=== PATIENT | male | born 1960 | race Caucasian/White ===

== ENCOUNTER 2019-06-11 08:33 | Inpatient (IN) | payer MEDICARE, MEDICAID ==
[~2019-06-11] VITALS: Ht 175.2 cm; Wt 81.2 kg
[2019-06-11 13:39] VITALS: BP 190/88
--- NOTE | 2019-06-11 13:40 | NUR ---
DR. INTERIANO NOTIFIED OF NEW ADMISSION. CONSULT FOR MEDICAL MANAGEMENT TO BE PUT UNDER DR. LEMUS.
--- NOTE | 2019-06-11 13:40 | NUR ---
DR. INTERIANO NOTIFIED OF MANUAL BLOOD PRESSURE OF 190/88 PULSE OF 55. PATIENT STATED THAT HE HAS NOT RECEIVED ANY MEDICATIONS YET TODAY. NO NEW ORDERS AT THIS TIME.
[2019-06-11 13:41] VITALS: BP 190/88
--- NOTE | 2019-06-11 14:27 | NUR ---
1329- PT ARRIVED ON THE UNIT. PT REPORTS HAVING SUICIDAL THOUGHTS AND HEARING VOICES TELLING HIMSELF TO CUT HIS WRISTS OR TO WALK IN FRONT OF A CAR. WHILE COMPLETING ALCOHOL ASSESSMENT, PT ADVISED THIS NURSE THAT HE CONSUMES 20-24 BEERS PER DAY. HE ONLY CONSUMED 7 YESTERDAY DUE TO GOING TO THE HOSPITAL. PT ADVISED THAT HE HAS HAD PROBLEMS IN THE PAST WITH WITHDRAWL. 1348- SPOKE WITH DR. LOWE RE: PT ALCOHOL CONSUMPTION, SHE WILL CONSULT DR. BURGOS AND LET US KNOW. 1355- DR BURGOS ON THE UNIT TO ASSESS PT, UPDATE PROVIDED, PER DR. GLASGOW CALL DR. URIOSTEGUI AND SEE IF HE IS AGREEABLE TO FOLLOWING THE PT IN THE ICU. 1358-SPOKE WITH DR URIOSTEGUI ADVISED OF SITUATION, PER DR. URIOSTEGUI HE WILL FOLLOW PT IN THE ICU AND ORDERS RECEIVED TO CONTINUE RISPERDAL M-TAB 1MG TID. 1400-DR. GLASGOW REMAINS ON THE UNIT, UPDATED OF DR. SORIANO WISHES, PER DR BURGOS D.C PT TO ICU. 1402- SPOKE WITH NURSING HELPER [facility], ENOCH, DIAGNOSIS GIVEN TO OBTAIN BED NUMBER. 1407- PT WILL GO TO ICU BED #7 PER ENOCH. 1415- PT OFF THE UNIT VIA WHEELCHAIR, ESCORTED BY 2 STAFF MEMBERS AND SECURITY. REPORT GIVEN TO Virgilio VINCENT RN IN ICU. ADMISSION ASSESSMENT WAS NOT COMPLETED, PT SIGNED IN VOLUNTARY FROM [facility], NO OTHER FORMS WERE SIGNED AT THIS TIME D/T DISCHARGE TO ICU.
[2019-06-11] MEDS ORDERED: RISPERIDONE M-TA1 MG PO (14:31)
== END 2019-06-11 14:20 | disposition short-term general hospital (02) | DRG 885 ==
LOC: 3N 08:33
PROVIDERS: ADMIT Psychiatry & Neurology Psychiatry
DX: F25.9 Schizoaffective disorder, unspecified (principal); Z88.8 Allergy status to other drugs, medicaments and biological substances; Z88.2 Allergy status to sulfonamides

== ENCOUNTER 2019-06-11 15:03 | Inpatient (IN) | payer MEDICARE, MEDICAID ==
[~2019-06-11] VITALS: Ht 175.3 cm; Wt 72.8 kg
[2019-06-11 14:16] VITALS: BP 180/93; BP 200/100
--- NOTE | 2019-06-11 14:16 | NUR ---
A 58, admitted to ICCU, under the services of AVELINO Borja DO with a diagnosis of alchol dependence. Chief complaint is " voices are telling me to cut myself". Patient arrived via wheel chair from [facility]. Monitor applied. Initial assessment completed. Vital signs taken and recorded. AVELINO BORJA DO notified of admission to the unit. Orders received. See assessment for past medical history, medications and allergies. Patient and/or family oriented to unit. [facility] visitation policy reviewed. Clothing/patient valuable form completed . Incidently included w/ belongings is a bag of marijuana and some type of liquid in a vial which pt. states is for vaping. GILDARDO VINCENT
[~2019-06-11 15:03] MED LIST: RISPERIDONE M-TA1 MG PO
[2019-06-11 17:15] LABS: BASO # 0.1 10*3/uL (0.0-0.1); BASO % 0.7 % (0.0-1.0); EOS # 0.3 10*3/uL (0.0-0.4); EOS % 4.1 % (1.0-4.0); HEMATOCRIT 48.5 % (42.0-52.0); HEMOGLOBIN 16.6 g/dl (14.0-18.0); LYMPH # 3.9 10*3/uL (1.3-4.4); LYMPH % 47.1 % (27.0-41.0); MEAN CORPUSCULAR HGB 32.2 pg (27.0-31.0); MEAN CORPUSCULAR HGB CONC 34.2 g/dl (33.0-37.0); MEAN PLATELET VOLUME 11.1 fl (9.6-12.3); MONO # 0.6 10*3/uL (0.1-1.0); MONO % 7.1 % (3.0-9.0); NEUT # 3.4 10*3/uL (2.3-7.9); NEUT % 40.9 % (47.0-73.0); PLATELET COUNT AUTOMATED 151 10*3/uL (130-400); RED BLOOD COUNT 5.16 10*6/uL (4.50-5.90); RED CELL DISTRI WIDTH 13.2 % (0-14.5); WHITE BLOOD COUNT 8.2 10*3/uL (4.8-10.8)
[2019-06-11 17:26] VITALS: BP 140/70
[2019-06-11 17:39] LABS: ALBUMIN 3.6 gm/dl (3.1-4.5); BUN 7 mg/dl (7-24); CHLORIDE 102 mmol/L (98-107); CREATININE 0.84 mg/dL (0.70-1.30); POTASSIUM 3.3 mmol/L (3.5-5.1); SGOT/AST 127 IU/L (3-35); SGPT/ALT 131 U/L (12-78); SODIUM 134 mmol/L (136-145)
[2019-06-11 17:40] LABS: ALKALINE PHOSPHATASE 115 U/L (45-117); TOTAL PROTEIN 9.1 gm/dL (6.4-8.2)
[2019-06-11 20:00] VITALS: BP 132/76
--- NOTE | 2019-06-11 20:00 | NUR ---
PT RESTING IN BED AWAKE, A&O, COOPERATIVE. RESP NONLABORED. NO ACUTE DISTRESS NOTED. NO COMPLAINTS VOICED. HEPLOCK PATENT. PO MEDS AYANNA WELL.
[2019-06-12] VITALS: BP 141/70
--- NOTE | 2019-06-12 03:10 | NUR ---
MEDICATED WITH NORCO PER PRN ORDER FOR C/O OF RIGHT SIDED PAIN.
[2019-06-12 04:00] VITALS: BP 151/73
[2019-06-12 05:07] LABS: BUN 12 mg/dl (7-24); CHLORIDE 102 mmol/L (98-107); CHOLESTEROL 165 mg/dL (<200); CREATININE 0.85 mg/dL (0.70-1.30); HDL CHOLESTEROL 46 mg/dl (40-60); LDL CHOLESTEROL 102 mg/dL (9-159); PHOSPHOROUS 2.8 mg/dL (2.5-4.9); POTASSIUM 3.7 mmol/L (3.5-5.1); SODIUM 135 mmol/L (136-145); TRIGLYCERIDES 86 mg/dl (<150); VLDL CHOLESTEROL 17 mg/dL (6-40)
[2019-06-12 05:57] LABS: BASO # 0.1 10*3/uL (0.0-0.1); BASO % 0.9 % (0.0-1.0); EOS # 0.4 10*3/uL (0.0-0.4); EOS % 5.3 % (1.0-4.0); HEMATOCRIT 45.1 % (42.0-52.0); HEMOGLOBIN 15.3 g/dl (14.0-18.0); LYMPH # 3.3 10*3/uL (1.3-4.4); LYMPH % 48.1 % (27.0-41.0); MEAN CELL VOLUME 93.4 fl (80.0-94.0); MEAN CORPUSCULAR HGB 31.7 pg (27.0-31.0); MEAN CORPUSCULAR HGB CONC 33.9 g/dl (33.0-37.0); MEAN PLATELET VOLUME 11.8 fl (9.6-12.3); MONO # 0.7 10*3/uL (0.1-1.0); MONO % 9.4 % (3.0-9.0); NEUT # 2.5 10*3/uL (2.3-7.9); NEUT % 36.2 % (47.0-73.0); PLATELET COUNT AUTOMATED 125 10*3/uL (130-400); RED BLOOD COUNT 4.83 10*6/uL (4.50-5.90); RED CELL DISTRI WIDTH 13.1 % (0-14.5); WHITE BLOOD COUNT 6.9 10*3/uL (4.8-10.8)
--- NOTE | 2019-06-12 07:30 | NUR ---
RESTING QUIETLY, COOPERATIVE, NO TREMORS OR SIGNS OF DT'S PT DRESSED IN STREET CLOTHES, BELONGINGS SECURED
[2019-06-12 08:00] VITALS: BP 172/90
--- NOTE | 2019-06-12 08:30 | NUR ---
RESIDENT IN TO SEE PT AND IS UPSET THAT THE PRIVACY CURTAIN IS PULLED, ADVISED TAHT PT IS USING THE URINAL AND IS STABLE ON THE MONITOR
--- NOTE | 2019-06-12 11:20 | NUR ---
FIRST BOTTLE OF CT PREP GIVEN
--- NOTE | 2019-06-12 11:45 | NUR ---
PT WANTING TO LEAVE, AFRAID THAT SOMEONE WILL STEAL HIS MONEY, ADVISED OF NEED TOWANT TILL CLEARED BY MENTAL HEALTH
[2019-06-12 12:00] VITALS: BP 168/90
--- NOTE | 2019-06-12 12:10 | NUR ---
PT DEMANDING TO TALK WITH ILLUSIONIST PISSED THAT HE CAN NOT LEAVE PISSED THAT SOMEONE WILL STEAL HIS MONEY PISSED AT STAFF PISSED THAT WE WILL NOT LEAVE THE CURTAIN PULLED AROUND HIM, "ILL JUST FUCKING PISS ALL OVER THE FLOOR" "IM NO LONGER HEARING VOICES" "I WANT TO LEAVE" ILLUSIONIST UPDATED
--- NOTE | 2019-06-12 13:20 | NUR ---
Inventory Analyst in to talk to patient. Patient states lives at HOME with MOTHER. There are FEW steps in the home. Physician: JAY LUTZ [facility]acy: [facility] Home health services: NONE Patient's level of ADLs: INDEPENDENT Patient has working utilities: YES DME: NONE Follow-up physician's appointment after d/c: PREFERS TO MAKE OWN APPOINTMENT ON DISCHARGE Does patient want to access PORTAL?: NO Discharge plan PT LIVES AT HOME WITH HIS MOTHER AND STATES HE IS INDEPENDENT IN HIS ADLS AND AMBULATION. DENIES HE WILL HAVE ANY NEEDS ON DISCHARGE. WILL CONTINUE TO FOLLOW. STATES HE IS UNSURE HOW HE WILL GET BACK HOME ON DISCHARGE.. YANIQUE MURILLO
[2019-06-12 16:00] VITALS: BP 131/73
--- NOTE | 2019-06-12 16:44 | NUR ---
COPPERATIVE AND PLEASANT, AWARE THAT HE WILL NOT BE ABLE TO GO HOME TONIGHT
--- NOTE | 2019-06-12 18:00 | NUR ---
DR LEONARDO AWARE OF NEED FOR WOUND ORDERS
--- NOTE | 2019-06-12 19:20 | NUR ---
DR PHAM UPDATED ON CONSULT
[2019-06-12 20:00] VITALS: BP 112/70
--- NOTE | 2019-06-12 20:29 | NUR ---
NORCO FOR HEADACHE AND 2200 DOSE OF ATIVAN PER PT REQUEST "FOR NERVES". PT ALSO IN LINE OF SIGHT, SITTING ON SIDE OF BED, EATING 4 CHOCOLATE ICE CREAMS.
--- NOTE | 2019-06-12 21:17 | NUR ---
PT SITTING UP CROSS LEGGED IN BED. SHAKING HEAD AND YELLS OUT "I CAN'T STAND IT HERE ANY LONGER". EMOTIONAL SUPPORT GIVEN, OFFERED ADDITIONAL MEDICATIONS BUT PT DECLINES.
--- NOTE | 2019-06-12 21:34 | NUR ---
DR OJEDA HERE. NOTIFIED OF PT AGITATION AND MEDICATIONS GIVEN. PT SAYS "I CAN TRY THE TRAZADONE BUT IT ISN'T GONNA WORK. I'VE TAKEN IT BEFORE!" MEDICATION PROVIDED. PT TEARFUL, WILL NOT MAKE EYE CONTACT WITH ME. PT REMAINS OFF THE MONITOR AND WILL NOT PERMIT ME TO PLACE HIM BACK ON IT. DR OJEDA AWARE OF THIS ALSO.
--- NOTE | 2019-06-12 22:08 | NUR ---
PT REFUSED TO TAKE TRAZADONE. HE REMAINS AGITATED AND TEARFUL. TALKING ON CORDLESS PHONE TO SOMEONE ABOUT HIS MONEY AND WORRY THAT IT WILL BE TAKEN.
--- NOTE | 2019-06-12 22:24 | NUR ---
PT YELLED OUT. "TAKE THIS STUFF OFF OF ME SO I CAN GO HOME!" AND REQUESTING SOMETHING TO SLEEP BUT CAN'T TELL ME WHAT WORKS FOR HIM. DR ZAMORA NOTIFIED AND WILL GET BACK WITH ME.
--- NOTE | 2019-06-12 22:35 | NUR ---
IV ATIVAN GIVEN AT 2233 FOR SEVERE AGITATION AND PT STATING "YOU WOULDN'T WANT TO BE HERE IF YOU JUST HAD SOMEONE STEAL YOUR $10,000!" NOT EFFECTIVE YET PT IS SITTING CROSS LEGGED IN BED, MUMBLING OUT LOUD AND INTERJECTING IN STAFF CONVERSATIONS.
--- NOTE | 2019-06-12 23:47 | NUR ---
IV ATIVAN SOMEWHAT EFFECTIVE. PT WILL APPEAR TO BE SLEEPING BUT THEN JUST GET OUT OF BED AND LOOK AROUND. PT IS AOX3 BUT REMAINS AGITATED ABOUT HAVING TO STAY HERE. ASSISTED PT BACK TO BED AND IN POSITION OF COMFORT. HE CONTINUES TO REFUSE PLACEMENT ON CLIENT SERVICES ANALYST AND REFUSES ASSESSMENT/VS MEASUREMENT. REMAINS IN LINE OF SIGHT OF ICU STAFF.
--- NOTE | 2019-06-13 01:03 | NUR ---
APPEARS TO BE SLEEPING.
--- NOTE | 2019-06-13 03:10 | NUR ---
SLEEPING IN PRONE POSITION. RESPIRATIONS EVEN AND UNLABORED.
[2019-06-13 04:00] VITALS: BP 120/60
--- NOTE | 2019-06-13 04:46 | NUR ---
PT ATE MORE ICE CREAM. STILL AGITATED ABOUT STAYING HERE EVIDENCED BY ASKING TIME NOW AND WHAT TIME DOCTORS WILL ARRIVE IN AM. PT STARES AT ME. GRUMBLES ABOUT GETTING LABS DRAWN. UPON MY ATTEMPT TO ASSESS, PT WILL NOT PERMIT ME TO UTILIZE ADDRESSING MACHINE OPERATOR STATING "THAT THING WILL KEEP ME HERE." MANUAL HR, BP,TEMP TAKEN.
[2019-06-13 05:40] LABS: ALBUMIN 3.2 gm/dl (3.1-4.5); BUN 15 mg/dl (7-24); CHLORIDE 108 mmol/L (98-107); CREATININE 1.09 mg/dL (0.70-1.30); POTASSIUM 3.9 mmol/L (3.5-5.1); SGOT/AST 110 IU/L (3-35); SGPT/ALT 114 U/L (12-78); SODIUM 139 mmol/L (136-145); TOTAL PROTEIN 7.8 gm/dL (6.4-8.2)
[2019-06-13 05:41] LABS: ALKALINE PHOSPHATASE 104 U/L (45-117)
[2019-06-13 06:01] LABS: BASO # 0.1 10*3/uL (0.0-0.1); BASO % 0.7 % (0.0-1.0); EOS # 0.3 10*3/uL (0.0-0.4); EOS % 4.2 % (1.0-4.0); HEMATOCRIT 44.4 % (42.0-52.0); HEMOGLOBIN 14.8 g/dl (14.0-18.0); LYMPH % 43.8 % (27.0-41.0); MEAN CELL VOLUME 94.9 fl (80.0-94.0); MEAN CORPUSCULAR HGB 31.6 pg (27.0-31.0); MEAN CORPUSCULAR HGB CONC 33.3 g/dl (33.0-37.0); MEAN PLATELET VOLUME 12.3 fl (9.6-12.3); MONO # 0.7 10*3/uL (0.1-1.0); MONO % 10.1 % (3.0-9.0); NEUT # 2.8 10*3/uL (2.3-7.9); NEUT % 41.1 % (47.0-73.0); PLATELET COUNT AUTOMATED 129 10*3/uL (130-400); RED BLOOD COUNT 4.68 10*6/uL (4.50-5.90); RED CELL DISTRI WIDTH 13.2 % (0-14.5); WHITE BLOOD COUNT 6.7 10*3/uL (4.8-10.8)
--- NOTE | 2019-06-13 07:15 | NUR ---
Shift chart check completed.24 HR chart check completed.
--- NOTE | 2019-06-13 07:53 | NUR ---
ON ASSESSMENT PATIENT COOPERATIVE TO ALLOW ME TO ASSESS HIM AND TAKE VITAL SIGNS. REMAINS OFF THE MONITOR. HEP LOCK INTACT. PT FLAT AFFECT. ON QUESTIONING HE'S ABLE TO TELL ME HE IS IN "[facility]" AND THAT HE'S HERE "BECAUSE I WAS SUICIDAL WHICH I'M NOT ANYMORE". WHEN EXPLANATIONS GIVEN ABOUT PSYCH CONSULT PT SAYS "OH WE HAVE TO PLAY THAT GAME, DO WE". I ORDERED HIM SOME BREAKFAST. HE ATTEMPTED TO USE PORTABLE PHONE TO CALL HIS MOTHER "I GOT THE ANSWERING MACHINE". WHEN I QUESTIONED HIM A SECOND TIME IF HE WAS FEELING LIKE HE WANTED TO HURT HIMSELF HE SAID "NO, AND IF I DO AGAIN I'M NOT TELLING ANYONE". HE EXPRESSES CONCERN THAT HIS "HOUSE IS UNLOCKED" AND THAT SOMEONE CAN "GO IN AND STEAL MY MONEY". ENCOURAGED HIM TO TALK HONESTLY WITH ALL DOCTORS WHO COME IN TODAY. AFTER I LEAVE HIS BEDSIDE AND GO TO DESK HE LAYS BACK, MUMBLING/TALKING TO HIMSELF.
[2019-06-13 08:00] VITALS: BP 160/70
--- NOTE | 2019-06-13 09:09 | NUR ---
[facility] DEPARTMENT CALLED TO MAKE SURE PATIENT IS ON THE LIST TO BE SEEN TODAY.
--- NOTE | 2019-06-13 09:13 | NUR ---
PT TALKED TO MOTHER VIA PHONE.
--- NOTE | 2019-06-13 09:32 | NUR ---
DR CHAPPELL HAS VISITED. PT AGREED WITH DR CHAPPELL TO WAIT TO BE SEEN BY PSYCH CONSULT. HE'S LAYING BACK IN BED WITH HIS ARMS CROSSED.
--- NOTE | 2019-06-13 09:47 | NUR ---
PT AND I WALKED ENTIRE CIRCUMFERENCE OF 4TH FLOOR. GAIT IS STEADY. HE EXPRESSES THAT IF HE'S DISCHARGED HE DOESN'T KNOW HOW HE WILL GET HOME HIS MOTHER "CAN'T DRIVE THAT FAR". PT LIVES IN [place], [place].
--- NOTE | 2019-06-13 10:35 | NUR ---
PT IS STANDING, STARING AT ME. ARMS CROSSED. HE'S UPSET THAT HE'S HAVING TO WAIT TO BE SEEN BY PSYCH CONSULT. EXPLANATIONS GIVEN TO PT. OFFERED HIM ICE CREAM BUT HE'S DECLINED.
--- NOTE | 2019-06-13 10:41 | NUR ---
PT CONTINUES TO PACE IN [facility]. I OFFERED TO WALK AGAIN WITH HIM BUT HE DECLINED. I'VE OFFERED A NEWSPAPER. HE CONTINUES TO PACE.
--- NOTE | 2019-06-13 11:46 | NUR ---
PT HAS REQUESTED MACHINE ADJUSTER LEADER CASE TRIM SPEAK TO HIM, AND SHE HAS. [facility] NURSE PRACTITIONER IS AWARE PT NEEDS SEEN. PT SITTING IN CHAIR, SHAKING HIS LEGS. I HAVE OFFERED TO ORDER LUNCH FOR HIM BUT HE'S DECLINED. WHEN I WALK AWAY TO CHART HE MUMBLES LOWLY, NOT SURE WHAT HE'S SAYING.
[2019-06-13 12:00] VITALS: BP 138/68
--- NOTE | 2019-06-13 12:55 | NUR ---
PT IS DRESSED, WAITING ON HIS MOTHER TO COME. AWAITING DISCHARGE ORDER.
--- NOTE | 2019-06-13 12:57 | NUR ---
HEP LOCK REMOVED INTACT FROM LEFT ANTECUBITAL. PT HAS BEEN OFFERED LUNCH MULTIPLE TIMES BUT HE'S DECLINED. HE'S STANDING AT THE DESK WAITING FOR DISCHARGE ORDERS AND HIS RIDE.
[2019-06-13] MEDS ORDERED: INVEGA6 MG PO (13:14)
[2019-06-13] MEDS ORDERED: REMERON15 M2 PO (13:14)
[2019-06-13] MEDS ORDERED: AMLODIPINE BESYL5 MG PO (13:48)
[2019-06-13] MEDS ORDERED: LISINOPRIL10 M1 PO (13:48)
--- NOTE | 2019-06-13 14:13 | NUR ---
PT IS EMPTY CCU ROOM, WATCHING OUT THE WINDOW FOR HIS MOTHER. CHAIR PROVIDED. HE DID DRINK SOME TERRI ROMI WHEN OFFERED.
--- NOTE | 2019-06-13 14:20 | NUR ---
MOTHER AND SISTER HERE. DISCHARGE INSTRUCTIONS GIVEN.PT DISCHARGED AMBULATORY WITH HIS BELONGINGS, IN STABLE CONDITION. HE WAS ARGUING WITH HIS SISTER ALL THE WAY OUT.
== END 2019-06-13 14:20 | disposition home or self-care (01) | DRG 897 ==
LOC: ICCU 15:03
PROVIDERS: Student in an Organized Health Care Education/Training Program; ADMIT Internal Medicine
DX: F10.239 Alcohol dependence with withdrawal, unspecified (principal); R45.851 Suicidal ideations; E87.1 Hypo-osmolality and hyponatremia; F25.0 Schizoaffective disorder, bipolar type; F14.10 Cocaine abuse, uncomplicated; F12.10 Cannabis abuse, uncomplicated; F15.10 Other stimulant abuse, uncomplicated; R10.9 Unspecified abdominal pain; F41.9 Anxiety disorder, unspecified; B19.20 Unspecified viral hepatitis C without hepatic coma; R74.0 Nonspecific elevation of levels of transaminase and lactic acid dehydrogenase [LDH]; R73.9 Hyperglycemia, unspecified; E87.6 Hypokalemia; I16.0 Hypertensive urgency; I10 Essential (primary) hypertension; R00.1 Bradycardia, unspecified; F17.210 Nicotine dependence, cigarettes, uncomplicated; Z71.6 Tobacco abuse counseling; Z80.6 Family history of leukemia; Z88.2 Allergy status to sulfonamides; Z88.8 Allergy status to other drugs, medicaments and biological substances